=== PATIENT | female | born 1950 | race Caucasian/White ===

== ENCOUNTER → 2016-08-20 | Outpatient (CLI) | payer OTHER, MEDICARE ==
[~2016-08-20] MED LIST: ASTEPRO205.5 MCG/ NS; CELEXA10 MG PO; CLARITIN DPS10 MG PO; CRANBERRY500 M1 PO; DITROPAN-DPS5 MG PO; FLONASE 0.05% D16 GM NS; HYDRODIURIL-DPS25 MG PO; LOPRESSOR DPS50 MG PO; MONTELUKAST SOD10 MG PO; MUCUS RELIEF400 MG PO; NEURONTIN800 MG PO; NORCO 5-325 TA1 EACH PO; NORVASC DPS10 MG PO; OMEGA-3 DPS1000 MG PO; PROTONIX40 M2 PO; VITAMIN D-32000 UNI1 PO; ZOFRAN4 MG PO
== END | disposition home or self-care (01) ==
LOC: RAD.S 13:30
DX: Z12.31 Encounter for screening mammogram for malignant neoplasm of breast (principal)

== ENCOUNTER → 2016-09-09 | Outpatient (CLI) | payer MEDICARE, OTHER | END | disposition home or self-care (01) | LOC: RAD.S 14:22 | DX: R92.8 Other abnormal and inconclusive findings on diagnostic imaging of breast (principal); N63 Unspecified lump in breast ==

== ENCOUNTER → 2016-09-15 | Outpatient (CLI) | payer MEDICARE, OTHER | END | disposition home or self-care (01) | LOC: RAD.S 09:22 | PROC: 0HBT3ZX Excision of Right Breast, Percutaneous Approach, Diagnostic (ICD-10-PCS; principal; 2016-09-15) | DX: R92.8 Other abnormal and inconclusive findings on diagnostic imaging of breast (principal); N63 Unspecified lump in breast ==

== ENCOUNTER → 2016-11-03 | Outpatient (CLI) | payer MEDICARE, OTHER | END | disposition home or self-care (01) | LOC: RAD.S 07:47 | DX: M67.48 Ganglion, other site (principal) ==